=== PATIENT | male | born 1980 | race Caucasian/White ===

== ENCOUNTER 2017-04-01 15:54 | Emergency (ER) | payer MEDICAID, SELFPAY ==
[~2017-04-01] VITALS: Ht 175.3 cm; Wt 69.9 kg
[2017-04-01 15:56] VITALS: BP 146/90
[2017-04-01] MEDS ORDERED: LIDOCAINE 1%, 20ML ONE (16:40)
[2017-04-01] MEDS ORDERED: LIDOCAINE 1%, 20ML SQ ONE (17:00)
== END 2017-04-01 18:15 | disposition home or self-care (01) ==
LOC: ED 16:32
DX: L02.416 Cutaneous abscess of left lower limb (principal)
CPT/HCPCS: 10060

== ENCOUNTER 2017-06-29 17:37 | Emergency (ER) | payer MEDICAID ==
[~2017-06-29] VITALS: Ht 175.3 cm; Wt 68.5 kg
[2017-06-29] MEDS ORDERED: LIDOCAINE 1%, 10ML INFIL ONE (18:00)
[2017-06-29] MEDS ORDERED: LIDOCAINE 1%, 20ML ONE ×2 (18:31→18:44)
[2017-06-29 18:51] LABS: BLOOD UREA NITROGEN 16 mg/dL (7-18)
[2017-06-29 19:55] VITALS: BP 110/76
== END 2017-06-29 19:57 | disposition home or self-care (01) ==
LOC: ED 19:00
DX: L02.811 Cutaneous abscess of head [any part, except face] (principal)
CPT/HCPCS: 10060; 36415; 70490; 80048; 85025; 87070; 87077; 87186; 87205

== ENCOUNTER 2017-10-20 10:42 | Emergency (ER) | payer MEDICAID ==
[~2017-10-20] VITALS: Ht 175.3 cm; Wt 70.0 kg
[2017-10-20 10:47] VITALS: BP 126/85
[2017-10-20] MEDS ORDERED: LORazepam 1MG TABLET PO ONE (11:00)
[2017-10-20 11:08] LABS: DAU SCREEN DISCLAIMER
[2017-10-20 11:12] LABS: HEMATOCRIT 51.7 % (39.2-51.8); HEMOGLOBIN 17.4 g/dL (13.7-18.0)
[2017-10-20 11:21] LABS: ASPARTATE AMINO TRANSFERASE 14 U/L (15-37); BLOOD UREA NITROGEN 22 mg/dL (7-18)
[2017-10-20 11:26] LABS: ACETAMINOPHEN < 2 mcg/mL (10-30)
[2017-10-20] MEDS ORDERED: LORazepam 1MG TABLET ONE (12:01)
== END 2017-10-20 13:32 | disposition home or self-care (01) ==
LOC: ED 10:59
DX: R45.851 Suicidal ideations (principal); F41.1 Generalized anxiety disorder; F32.0 Major depressive disorder, single episode, mild; F15.10 Other stimulant abuse, uncomplicated
CPT/HCPCS: 36415; 80053; 80307; 80329; 85025; 99284; G0479; G0480

== ENCOUNTER 2019-03-07 10:32 | Emergency (ER) | payer MEDICAID ==
[~2019-03-07] VITALS: Ht 175.3 cm; Wt 69.0 kg
[2019-03-07 10:38] VITALS: BP 114/78
--- NOTE | 2019-03-07 11:34 | NUR ---
Patient/Caregiver given discharge instructions and they have confirmed that they understand the instructions. Patient ambulatory with steady gait.
== END 2019-03-07 11:35 | disposition home or self-care (01) ==
LOC: ED 11:30
DX: L03.211 Cellulitis of face (principal); L03.114 Cellulitis of left upper limb; L03.113 Cellulitis of right upper limb; F32.9 Major depressive disorder, single episode, unspecified; Z91.013 Allergy to seafood
CPT/HCPCS: 99283